=== PATIENT | female | born 1970 | race Caucasian/White ===

== ENCOUNTER 2018-12-04 17:00 | Emergency (ER) | payer OTHER ==
[~2018-12-04] VITALS: Ht 165.1 cm; Wt 102.3 kg
[~2018-12-04 17:00] MED LIST: ATEN25TA PO; DIPH25 PO; GABA-533 PO; PERCT10 PO; SERT100T12 PO
[2018-12-04] MEDS ORDERED: TRAZ-220 PO (17:17)
[2018-12-04] MEDS ORDERED: AMIT50TA3 PO (17:17)
[2018-12-04 20:32] VITALS: BP 147/89
== END 2018-12-04 21:05 | disposition home or self-care (01) ==
LOC: EMS 17:02
DX: S90.121A Contusion of right lesser toe(s) without damage to nail, initial encounter (principal); M19.90 Unspecified osteoarthritis, unspecified site; F41.9 Anxiety disorder, unspecified; F31.9 Bipolar disorder, unspecified; F22 Delusional disorders; F17.210 Nicotine dependence, cigarettes, uncomplicated; Z90.49 Acquired absence of other specified parts of digestive tract; Z86.73 Personal history of transient ischemic attack (TIA), and cerebral infarction without residual deficits; Z90.710 Acquired absence of both cervix and uterus; Z98.890 Other specified postprocedural states; Z79.899 Other long term (current) drug therapy; Z88.8 Allergy status to other drugs, medicaments and biological substances; Z91.040 Latex allergy status; Z88.6 Allergy status to analgesic agent; Z88.5 Allergy status to narcotic agent; W23.0XXA Caught, crushed, jammed, or pinched between moving objects, initial encounter; Y93.89 Activity, other specified; Y92.89 Other specified places as the place of occurrence of the external cause; Y99.8 Other external cause status